=== PATIENT | female | born 1980 | race Caucasian/White ===

== ENCOUNTER 2022-07-08 17:31 | Emergency (ER) | payer SELFPAY ==
[~2022-07-08] VITALS: Ht 170.2 cm; Wt 82.7 kg
--- NOTE | 2022-07-09 16:09 | EKG ---
[facility] [address] [place], [place] [address] Signed Undetermined rhythm Rightward axis Nonspecific ST and T wave abnormality Prolonged QT Abnormal ECG No previous ECGs available Confirmed by LUCA PFEIFFER MD ([id number]) on 07/09/2022 4:09:06 PM Electronically Signed By: LUCA PFEIFFER MD 07/09/22 1609 PATIENT NAME: TRA SANTANA Electrocardiogram DATE OF : 80 PHYSICIAN: LUCA PFEIFFER MD REPORT #: [id number] REPORT IS CONFIDENTIAL AND NOT TO BE RELEASED WITHOUT AUTHORIZATION
== END 2022-07-08 20:22 | disposition short-term general hospital (02) ==
LOC: ED 17:31
DX: I63.9 Cerebral infarction, unspecified (principal); Z88.8 Allergy status to other drugs, medicaments and biological substances; Z20.822 Contact with and (suspected) exposure to COVID-19
CPT/HCPCS: 36415; 70450; 70496; 70498; 71045; 80053; 85025; 85610; 85730; 93005; 93010; 99284-25; C9803; J2405; J3101; Q9967; U0003

== ENCOUNTER 2023-09-13 20:51 | Emergency (ER) | payer OTHER ==
[~2023-09-13] VITALS: Ht 170.2 cm; Wt 98.9 kg
--- OUTSIDE RECORDS SUMMARY | ~2023-09-13 | XMS | Continuity of Care Document ---
Demographics + + + | Address | [address] | | | [place] [address] | + + + | Preferred Language | Unknown | + + + | Marital Status | | + + + | Muslim Affiliation | Unknown | + + + | Race | White | + + + | Ethnic Group | Not or | + + + Author + + + | Author | [facility] | + + + | Organization | [facility] | + + + | Address | [address] | | | [place] [address] | + + + | Phone | | + + + Care Team Providers + + + + | Care Bleach Analyst Name | Role | Phone | + [...]
[~2023-09-13 20:51] MED LIST: ELIQUIS5 MG PO
--- OUTSIDE RECORDS SUMMARY | 2023-09-13 20:58 | XMS ---
PreManage Notification: TRA SANTANA Security Landscape Management Technician Events No recent Security Events currently on file CRITERIA MET - [facility] - 2 Visits in 30 Days CARE PROVIDERS -, Pennie Dahl Dentist: Welder/Installer Current Dental Clinic PHONE: [phone] DESI PLAZA Nurse Practitioner: Family Current PHONE: Unknown Danette has no Care Guidelines for this patient. Paulina VISIT COUNT (12 MO.) 2 [place] [address] [place] TOTAL 3 NOTE: Visits indicate total known visits. ED/UCC VISIT TRACKING (12 MO.) 09/13/2023 20:52 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 - Headache, unspecified - Vomiting, unspecified - STROKE INPATIENT VISIT TRACKING (12 MO.) 09/23/2022 21:37 [facility] [place] TYPE: Intensive Care DIAGNOSES: - Acute respiratory failure with hypoxia - Bradycardia, unspecified - 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
[2023-09-13 22:11] LABS: BASOPHILS 0.9 % (0-2); EOSINOPHILS 5.3 % (0-6); HEMATOCRIT 38.9 % (35.0-50.0); HEMOGLOBIN 13.3 g/dL (12.0-18.0); MCH 30.9 (27-36); MCHC 34.3 g/dl (30-36); MCV 90.1 fl (81-99); MONOCYTES 7.5 % (0-12); NEUTROPHILS 56.3 % (39-80); PLATELET COUNT 248 K/uL (140-440); RBC 4.32 M/ul (4.3-5.7); RDW 13.9 (10.5-15.0)
[2023-09-13 22:20] LABS: ALBUMIN 3.9 g/dL (3.4-5.0); ANION GAP 11.6 (7-21); BILIRUBIN, TOTAL 0.7 ng/dL (0.2-1.0); BUN/CREATININE RATIO 17.8 (6.0-28.6); CREATININE, SERUM 0.73 mg/dL (0.55-1.02); POTASSIUM 3.6 mmol/L (3.5-5.1); PROTEIN, TOTAL 7.8 g/dL (6.4-8.2)
[2023-09-13 22:43] LABS: INR 1.07 (0.80-1.30); PARTIAL THROMBOPLASTIN TIME 27.5 Sec (22.9-41.3); PROTIME 13.5 Sec (11.2-14.2)
[2023-09-13 23:09] VITALS: BP 143/83
== END 2023-09-13 23:09 | disposition home or self-care (01) ==
LOC: ED 20:51
PROVIDERS: Internal Medicine
DX: R04.2 Hemoptysis (principal); J45.909 Unspecified asthma, uncomplicated; Z79.01 Long term (current) use of anticoagulants; Z88.8 Allergy status to other drugs, medicaments and biological substances
CPT/HCPCS: 36415; 71046; 80053; 85025; 85379; 85610; 85730; 99283-25

== ENCOUNTER 2023-10-10 13:01 | Inpatient (IN) | payer OTHER ==
[~2023-10-10] VITALS: Ht 170.2 cm; Wt 99.1 kg
--- OUTSIDE RECORDS SUMMARY | ~2023-10-10 | XMS | Continuity of Care Document ---
Demographics + + + | Address | [address] | | | [place] [address] | + + + | Preferred Language | Unknown | + + + | Marital Status | | + + + | Scientologist Affiliation | Unknown | + + + | Race | White | + + + | Ethnic Group | Not or | + + + Author + + + | Author | [facility] | + + + | Organization | [facility] | + + + | Address | [address] | | | [place] [address] | + + + | Phone | | + + + Care Team Providers + + + + | Care Door To Door Salesperson Name | Role | Phone | + + + + Unavailable | Unavailable | + + + + Allergies No information. Encounters No information. Functional Status No information. Immunizations No information. Medications No information. Problems No information. Procedures No information. Results/Labs +--------+--------+ +---------+--------+---------+ | test | date | facility | value | unit | notes | +--------+--------+ +---------+--------+---------+ + + | Result panel 1 | + + + + + + + + + | No Results | (no date) | [facility] | No Results | (missing) | (missing) | | | | [facility] | | | | | | | [facility] | | | | + + + + + + + Social History + + + + | date | description | facility | + + + + | 2023-08-20 00:00 | Unknown if ever smoked | [facility] | | | | | + + + + Vital Signs + + + +---------+ | date | measurement | value | units | + + + +---------+ | 2023-08-16 00:00 | BMI | 33.7 | 1 | + + + +---------+ | 2023-08-16 00:00 | BP_diastolic | 91 | mmHg | + + + +---------+ | 2023-08-16 00:00 | BP_systolic | 186 | mmHg | + + + +---------+ | 2023-08-16 00:00 | BSA | 2.1 | 1 | + + + +---------+ | 2023-08-16 00:00 | heart_rate | 55 | /min | + + + +---------+ | 2023-08-16 00:00 | height_metric | 170.18 | cm | + + + +---------+ | 2023-08-16 00:00 | height_standard | 67 | in | + + + +---------+ | 2023-08-16 00:00 | temperature_metric | 36.39 | C | | | | | | + + + +---------+ | 2023-08-16 00:00 | | 97.5 | F | | | temperature_standar | | | | | d | | | + + + +---------+ | 2023-08-16 00:00 | weight_metric | 97.52 | kg | + + + +---------+ | 2023-08-16 00:00 | weight_standard | 215 | lb | + + + +---------+"
--- OUTSIDE RECORDS SUMMARY | ~2023-10-10 | XMS | Continuity of Care Document ---
Demographics + + + | Address | [address] | | | [place] [address] | + + + | Preferred Language | Unknown | + + + | Marital Status | | + + + | Restoration Affiliation | Unknown | + + + | Race | White | + + + | Ethnic Group | Not or | + + + Author + + + | Author | [facility] | + + + | Organization | [facility] | + + + | Address | [address] | | | [place] [address] | + + + | Phone | | + + + Care Team Providers + + + + | Care Bilingual Teacher Assistant Name | Role | Phone | + [...]
--- OUTSIDE RECORDS SUMMARY | 2023-10-10 13:09 | XMS ---
PreManage Notification: TRA SANTANA Security Electronic Equipment Repairmen Events No recent Security Events currently on file CRITERIA MET - [facility] - 2 Visits in 30 Days CARE PROVIDERS -, Pennie Dahl Dentist: Formstone Fitter Current Dental Clinic PHONE: [phone] HAFSA BALTAZAR Family Medicine Current PHONE: Unknown RM IBARRA Family Medicine Current PHONE: [phone] DESI PLAZA Nurse Practitioner: Family Current PHONE: Unknown Danette has no Care Guidelines for this patient. Paulina VISIT COUNT (12 MO.) 3 [facility] TOTAL 3 NOTE: Visits indicate total known visits. ED/UCC VISIT TRACKING (12 MO.) 10/10/2023 13:02 [facility] [place] TYPE: Emergency COMPLAINT: - SKIN PROBLEM 09/13/2023 20:52 [facility] [place] TYPE: Emergency COMPLAINT: - COUGHING UP BLOOD DIAGNOSES: - Allergy status to other drugs, medicaments and biological substances - Hemoptysis - skilled nursing (current) use of anticoagulants - Unspecified asthma, uncomplicated 08/24/2023 15:34 [facility] [place] TYPE: Emergency COMPLAINT: - MEDICAL CLEARANCE DIAGNOSES: - Adjustment disorder, unspecified - Allergy status to other drugs, medicaments and biological substances - skilled nursing (current) use of anticoagulants - Major depressive disorder, single episode, unspecified - Suicidal ideations INPATIENT VISIT TRACKING (12 MO.) No inpatient visits to display in this time frame [id number]
[2023-10-10 16:44] LABS: BASOPHILS 0.6 % (0-2); EOSINOPHILS 0.6 % (0-6); HEMATOCRIT 38.5 % (35.0-50.0); HEMOGLOBIN 12.9 g/dL (12.0-18.0); LYMPHOCYTES 16.9 % (24-44); MCH 29.8 (27-36); MCHC 33.6 g/dl (30-36); MCV 88.8 fl (81-99); MONOCYTES 12.3 % (0-12); NEUTROPHILS 69.6 % (39-80); PLATELET COUNT 190 K/uL (140-440); RBC 4.33 M/ul (4.3-5.7); RDW 13.4 (10.5-15.0)
[2023-10-10 16:58] LABS: ALBUMIN 3.7 g/dL (3.4-5.0); ALBUMIN/GLOBULIN RATIO 0.82 (1.1-2.4); ANION GAP 15.5 (7-21); BILIRUBIN, TOTAL 0.8 ng/dL (0.2-1.0); BUN/CREATININE RATIO 12.16 (6.0-28.6); CALCIUM 8.8 mg/dL (8.5-10.1); CREATININE, SERUM 0.74 mg/dL (0.55-1.02); POTASSIUM 3.5 mmol/L (3.5-5.1); PROTEIN, TOTAL 8.2 g/dL (6.4-8.2)
[2023-10-10 21:25] VITALS: BP 170/87
--- NOTE | 2023-10-10 21:30 | NUR ---
REPORT RECIEVED FROM ED RN. pt ABLE TO TRANSFER INDEPENDENTLY FROM STRETCHER TO MED/SURG BED. pt FOREHEAD HAS HONEY CRUSTED SCABS. pt RIGHT EYE SWOLLEN SHUT AND EYELIDS RED IN COLOR. pt STATES THERE IS NO CHANGE IN HER VISION. ASSESSMENT AND VITAL SIGNS DONE. ADMISSION AND HX DONE. pt C/O 8/10 PAIN. PRN PAIN MEDICATION ADMNISTERED, SEE MAR. IVF INFUSING, SEE NOV. IV ASSESSED, WNL. pt REQUSTED HOME MEDS. PHONE CALL TO MD WOMACK ABOUT HOME MEDICATION ELIQUIS. NEW TELEPHONE ORDER VERIFIED WITH READ BACK METHOD FOR pt HOME DOSE OF ELIQUIS. BED WEIGHT TAKEN. pt DENIES ANY OTHER NEEDS AT THIS TIME. CALL LIGHT WITHIN REACH.
--- NOTE | 2023-10-10 22:51 | NUR ---
CALLED DR WOMAKC TO CLARIFY DAPTO IV ORDER, pt CAME TO [place] FLOOR AND NEVER RECEIVED THE X1 DOSE OF 500MG IV DAPTO, pt ALSO HAS DAILY 600MG IV DAPTO ORDERED BY HOSPITALIST, TELEPHONE ORDER READ BACK FROM DR WOMACK TO NOT GIVE X1 500MG IV DOSE AND TO JUST START pt ON HOSPITALIST ORDER OF THE DAILY 600MG IV. ALSO CONFIRMED WITH LANI IN TELEPHARMACY, OKAY FOR pt TO RECIEVE THE FIRST DOSE NOW AND TO CONTINUE TO GIVE DIRECTED DAILY TOMORROW MORNING. PRIMARY RN COLEMAN UPDATED. VALENTINO CHICASSTRATEGY MANAGER ALSO UPDATED AND MADE AWARE, TO MIX MEDICATION ONCE AVAILABLE.
--- NOTE | 2023-10-10 23:00 | NUR ---
pt C/O 04/08. PHONE CALL TO MD WOMACK FOR PRN PAIN MEDICATIONS. NEW TELEPHONE ORDER FOR 5 MG OXYCODONE PO PRN FOR MODERATE TO SEVERE PAIN. TELE PHARMACY HAD PUT ORDER INTO NOV. ORDER VERIFIED WITH REPEAT BACK METHOD. PRN PAIN MEDICATION ADMNISTERED, SEE MAR. pt DENIES ANY OTHER NEEDS RIGHT NOW. CALL LIGHT WITHIN REACH.
[2023-10-11] VITALS (8 sets, daily range): BP systolic 146–165; BP diastolic 73–92
--- NOTE | 2023-10-11 01:32 | NUR ---
pt CALLED C/O 07/09 PAIN STATED SHE WAS SITTING ON THE EDGE OF THE BED CRYING. CALL PLACED TO MD WOMACK FOR PRN PAIN MEDICATION. NEW TELEPHONE ORDER PLACED FOR 2 MG MORPHINE IV PRN FOR SEVERE PAIN. ORDER VERIFIED WITH REPEAT BACK METHOD. ORDER PLACED IN NOV. PRN PAIN MEDICATION ADMINISTERED, SEE NOV. ASSESSMENT AND VITAL SIGNS DONE. NEW HAT PLACED IN TOILET. HOT PACK PROVIDED FOR pt. pt DENIES ANY OTHER NEEDS AT THIS TIME. CALL LIGHT WITHIN REACH. IV ABX INFUSING, SEE NOV.
--- NOTE | 2023-10-11 03:45 | NUR ---
pt C/O 05/09 PAIN. PRN PAIN MEDICATION ADMINISTERED, SEE MAR. pt STATES SHE IS FEELING OK IF SHE JUST DOESN'T MOVE. THIS RN EDUCATED pt ON PLAN FOR STAY ON TOP HER PAIN. pt DENIES ANY OTHER NEED AT THIS TIME. CALL LIGHT WITHIN REACH.
[2023-10-11 05:50] LABS: MCV 87.6 fl (81-99); RDW 13.7 (10.5-15.0)
[2023-10-11 05:55] LABS: HEMATOCRIT 32.1 % (35.0-50.0); HEMOGLOBIN 11.2 g/dL (12.0-18.0); MCH 30.5 (27-36); MCHC 34.8 g/dl (30-36); PLATELET COUNT 163 K/uL (140-440); RBC 3.66 M/ul (4.3-5.7)
[2023-10-11 06:01] LABS: ANION GAP 14.7 (7-21); CALCIUM 8.2 mg/dL (8.5-10.1); CREATININE, SERUM 0.6 mg/dL (0.55-1.02); POTASSIUM 3.7 mmol/L (3.5-5.1)
[2023-10-11 06:11] LABS: BANDS, MANUAL DIFF 5; LYMPHOCYTES, MANUAL DIFF 32; MONOCYTES, MANUAL DIFF 8; NEUTROPHILS, MANUAL DIFF 55
--- NOTE | 2023-10-11 06:30 | NUR ---
pt C/0 06/09 PAIN. PRN PAIN MEDICATION ADMINISTERED. VITAL SIGNS AND I&O'S DONE. IVF INFUSING. pt DENIES ANY OTHER NEEDS AT THIS TIME. CALL LIGHT WITHIN REACH.
--- NOTE | 2023-10-11 07:58 | NUR ---
UR NOTE MCG CELLULITIS: OBSERVATION CARE (ISC) 10/10/23 MET OBSERVATION CARE ADMISSION SONDRA
[2023-10-11] MEDS ORDERED: DULOXETINE HCL20 MG PO (10:10)
--- NOTE | 2023-10-11 10:15 | NUR ---
BETTINA from Dr. Wilkins to change dose of oxycodone from 5mg to 10mg every six hours as needed for pain, Morphine to be discontinued and start dilaudid 1mg IV every four hours for pain as needed.
--- NOTE | 2023-10-11 10:18 | NUR ---
ADMIN DILAUDID 1MG IV FOR REPORTS OF 10/10 FACE PAIN.
--- NOTE | 2023-10-11 10:18 | NUR ---
Admin dilaudid 1mg iv for reports of 10/10 face/rasch area pain.
--- NOTE | 2023-10-11 12:16 | NUR ---
Admin oxycodone 10mg po for reports of 5/10 facial pain.
--- NOTE | 2023-10-11 13:55 | NUR ---
ATTEMPTED TO COMPLETE ASSESSMENT, PATIENT SLEEPING. WILL RETURN AT A LATER TIME.
--- NOTE | 2023-10-11 15:09 | NUR ---
ADMIN DILAUDID 1MG IV FOR REPORTS OF 8/10 FACIAL PAIN. RIGHT EYE REMAINS CLOSED AND SWOLLEN. TISSUE SURROUNDING LEFT EYE HAS SCANT SWELLING NOTED, PT ABLE TO OPEN/CLOSE LEFT EYE. PATIENT DENIES FURTHER NEEDS AT THIS TIME.
--- NOTE | 2023-10-11 16:27 | NUR ---
MED REC COMPLETE
--- NOTE | 2023-10-11 16:43 | NUR ---
Hourly rounding-Patient awake in bed, alert and oriented x4. Patient reports her pain is tolerable at this time. IV site remains patent, fluids infusing per provider order. Patient denies needs, personal supplies and call light wihtin reach.
--- NOTE | 2023-10-11 17:44 | NUR ---
ADMIN ZOFRAN 4MG IV FOR N/V. APPROX 400ML LIGHT BROWN COLORED GASTRIC EMESIS NOTED.
--- NOTE | 2023-10-11 19:15 | NUR ---
Patient resting in bed with HOB up. appears comfortable, Report provided by cruzito RN, call light within reach. patient watching TV
--- NOTE | 2023-10-11 20:20 | NUR ---
Patient feels her pain is better controled, Vs stable except temp 100.7 and patient medicated with tylenol. right eye swollen shut but patient states it is opening better and she can see out of it. area around eye going up the forehead to the hairline scabbed, flaky with areas of brown discoloratiin, no noted drainage, Maintaining contact precautions, Patient is up ad bessy to the BR and voiding without difficulty. Medicated with oxy per patient request for facial and neck pain. Is now lying on her side with lights out. call light within reach.
--- NOTE | 2023-10-11 22:40 | NUR ---
Patient up to the BR with no difficulty, No change in assessment, patient without complaints or needs at this time.
[2023-10-12] VITALS (8 sets, daily range): BP systolic 135–155; BP diastolic 65–95
--- NOTE | 2023-10-12 00:25 | NUR ---
Rounding on patient, appears a sleep.appears comfortable, RR even and unlabored, no noted change in right eye/forehead. call light within reachy
--- NOTE | 2023-10-12 02:01 | NUR ---
Patient sleeping between care, VSS, ABX infusiing, patient up to BR independently, remains comfortable, lights are out and call light within reach.
--- NOTE | 2023-10-12 03:55 | NUR ---
Patient called to request pain medication. Medicated with oxy and tylenol per patient request. Further assessment without change, Patient up ad bessy to BR.
[2023-10-12 05:48] LABS: ANION GAP 12.2 (7-21); BUN/CREATININE RATIO 5.55 (6.0-28.6); CALCIUM 8.2 mg/dL (8.5-10.1); CREATININE, SERUM 0.72 mg/dL (0.55-1.02); POTASSIUM 3.2 mmol/L (3.5-5.1)
--- NOTE | 2023-10-12 06:15 | NUR ---
Patient awake and sitting on edge of bed. Has had good pain control tonight with ocy + tylenol x2 and patient just requested and given diluadid 1 mg. VSS except evening temp @ 100.6 then down to 98.7 and this am check is up to 99.4. Patient feels like she can open the right eye more this am, but states it is still blurry. She has had no episodes fo crying on this shift.
--- NOTE | 2023-10-12 07:05 | NUR ---
PT STATES NO NEEDS AT THIS TIME, ALLOWED TO REST.
--- NOTE | 2023-10-12 07:17 | NUR ---
RECEIVED REPORT FROM ABHINAV GARDINER. ASSUMING CARE OF PT.
--- NOTE | 2023-10-12 09:00 | NUR ---
PT STATES PAIN HAS BEEN "MANAGEABLE" AND THAT SHE HAS BEEN "USING HOLISTIC TECHNIQUES TO KEEP PAIN AT BAY", STATES SHE WOULD LIKE PRN PAIN MEDICATION WHEN AVAILABLE. PT CONTINUES TO AMBULATE INDEPENDENTLY AROUND ROOM. PT TOLERATING REGULAR DIET WELL, A+O X3, LUNG SOUNDS CLEAR, HEART TONES REGULAR. PT VOIDING QUANTITY SUFFICIENT. SHINGLES AND CELLULITUS ON FOREHEAD/OVER R EYE REMAIN, HONEY CRUSTED SCABS PRESENT. PT REMAINS ON AIRBORN PRECAUTIONS AT THIS TIME. PT STATES SHE BELIEVES SWELLING FROM SHINGLES AND CELLULITUS HAS DECREASED SINCE YESTERDAY, NOW ABLE TO OPEN R EYE APPROXIMATELY HALF WAY. 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
--- NOTE | 2023-10-12 13:39 | NUR ---
PT REQUESTS WATER REFILL, GIVEN. STATES NO FURTHER NEEDS AT THIS TIME, CALL LIGHT WITHIN REACH.
--- NOTE | 2023-10-12 13:40 | NUR ---
THIS RN BRINGS LUNCH TRAY TO PT ROOM. PT STATES NO NEEDS AT THIS TIME. STATES PAIN IS "GETTING BETTER" AND RATES PAIN 6/10 AT THIS TIME. DENIES NEED FOR PRN PAIN MEDICATION AT THIS TIME. CALL LIGHT WITHIN REACH.
--- NOTE | 2023-10-12 13:50 | NUR ---
PT STATES PAIN IS "DOING OKAY" AT THIS TIME, DENIES NEED FOR PAIN MEDICATIONS. SITTING UP IN CHAIR TO EAT LUNCH. DENIES FURTHER NEEDS AT THIS TIME, CALL LIGHT WITHIN REACH.
--- NOTE | 2023-10-12 14:19 | NUR ---
PT MOVES FROM CHAIR TO BED INDEPENDENTLY. PT AND CHILDREN AT THE BEDSIDE. PT STATES PAIN IS "PRETTY GOOD" AT THIS TIME. STATES NO FURTHER NEEDS AT THIS TIME, CALL LIGHT WITHIN REACH.
--- NOTE | 2023-10-12 16:06 | NUR ---
PT SITTING ON BED VISITING WITH FAMILY. ABX COMPLETE WHILE THIS RN IN ROOM. PT REQUESTS MORE TOILET PAPER AND TO SHOWER. IV SALINE LOCKED, SHOWER SUPPLIES PROVIDED IV WRAPPED WITH ZIPLOC BAG. PT REQUESTS PRN PAIN MEDICATION TO "TRY AND GET AHEAD OF THE PAIN", STATES IV PRN PAIN MEDICATION RECENTLY GIVEN "HELPED A LOT" BUT DOES NOT WANT TO LET "MYSELF GET THAT PAINFUL AGAIN". PT STATES NO FURTHER NEEDS AT THIS TIME, CALL LIGHT WITHIN REACH.
--- NOTE | 2023-10-12 17:14 | NUR ---
PT HAS JUST SHOWERED, FAMILY LEAVES THE BEDSIDE AT THIS TIME. PT STATES PAIN IS 5/10 AND STATES "PROBABLY SLIGHTLY LOWER THAN THAT, BUT NOT SURE". PT STATES NO NEEDS AT THIS TIME, CALL LIGHT WITHIN REACH.
--- NOTE | 2023-10-12 19:36 | NUR ---
REPORT RECEIVED FROM DAY SHIFT RN. PT LYING IN BED ALERT AND ORIENTED. DENIES NEEDS. WHITE BOARD UPDATED. CALL LIGHT IN REACH.
--- NOTE | 2023-10-12 19:40 | NUR ---
PT RESTING IN BED. NO NEEDS, CALL LIGHT WITHIN REACH
--- NOTE | 2023-10-12 20:53 | NUR ---
EVENING ASSESSMENT COMPLETE. SCHEDULED MEDS ADMIN PER EMAR. IV ABX INFUSING PER ORDER. PT REPORTS RIGHT SIDE FOREHEAD PAIN TOLERABLE AT THIS TIME. REDNESS AND CRUSTING NOTED. PT ABLE TO OPEN EYE. REPORTS SLIGHT BLURRINESS DUE TO DRAINAGE. FEW RED SPOTS NOTED DOWN RIGHT SIDE OF NECK AND ON CHEST, NO BLISTERS NOTED. PT REPORTS RASH CAME AFTER "DOING LYMPHATIC MASSAGE." VS AND I&O OBTAINED. PT DENIES QUESTIONS OR CONCERNS. CALL LIGHT IN REACH.
--- NOTE | 2023-10-12 22:19 | NUR ---
IN FOR CASE WORKER. PT REPORTS EPISODE OF CHILLS AFTER GETTING BACK TO BED AFTER BATHROOM. PT AFEBRILE. REPORTS SX RESOLVED. C/O RIGHT SIDE FACE PAIN 05/09. PRN FOR PAIN ADMIN PER EMAR. NO FURTHER NEEDS. CALL LIGHT IN REACH.
--- NOTE | 2023-10-12 23:35 | NUR ---
IV PUMP ALARMING. ISSUE RESOLVED. PT REPORTS FACIAL PAIN 04/08. PRN FOR PAIN ADMIN PER EMAR. NO FURTHER NEEDS.
[2023-10-13] VITALS (7 sets, daily range): BP systolic 140–182; BP diastolic 74–92
--- NOTE | 2023-10-13 02:01 | NUR ---
PT RESTING WITH EYES CLOSED. AWAKENS EASILY. IV ABX INFUSING PER ORDER. PT REPORTS PAIN TOLERABLE. NO NEEDS AT THIS TIME.
[2023-10-13 05:36] LABS: ANION GAP 11.8 (7-21); BUN/CREATININE RATIO 9.23 (6.0-28.6); CALCIUM 8.4 mg/dL (8.5-10.1); CREATININE, SERUM 0.65 mg/dL (0.55-1.02); POTASSIUM 3.8 mmol/L (3.5-5.1)
--- NOTE | 2023-10-13 06:27 | NUR ---
PT RESTING WITH EYES CLOSED. AWAKENS TO VOICE. REPORTS FACIAL PAIN 03/09. PRN FOR PAIN ADMIN PER EMAR. SCHEDULED MEDS ADMIN PER ORDER. VS AND I&O OBTAINED, WNL. NO FURTHER NEEDS. CALL LIGHT IN REACH.
--- NOTE | 2023-10-13 07:33 | NUR ---
RECEIVED REPORT FROM ABHINAV ZAVALETA. ASSUMING CARE OF PT. PT AWAKE AND AMBULATING IN ROOM AND TO RESTROOM. PT STATES PAIN IS "STILL KIND OF HIGH" AFTER RECENT PAIN MEDICATIONS, REQUESTS NEXT PRN PAIN MEDICATION WHEN AVAILABLE. CALL LIGHT WITHIN REACH.
--- NOTE | 2023-10-13 08:13 | NUR ---
PT AWAKE AND ALERT IN BED. A+O X3. HEART TONES CONTINUE TO BE IRREGULAR PER BASELINE. LUNG SOUNDS CLEAR. BOWEL TONES ACTIVE. PT TAKES SENNA THIS MORNING, STATES SHE HAS NOT HAD BM SINCE 10/10/23, IS PASSING GAS, STATES SHE STARTED EATING MORE IN THE LAST DAY. SWELLING AROUND R EYE AND R SIDE OF FOREHEAD CONTINUES TO DECREASE, HONEY CRUSTED AND SCABBING REMAIN PRESENT, 3 SMALL SPOTS ON CHEST AND NECK, PT STATES THEY SEEM MORE LIKE PIMPLES TO HER AT THIS TIME, NO SPOTS ON OTHER AREAS. PT STATES NO NEEDS AT THIS TIME, CALL LIGHT WITHIN REACH, BED RAILS UP.
--- NOTE | 2023-10-13 14:20 | NUR ---
PT UP IN CHAIR VISITING WITH . PT STATES PAIN IS "DOING OKAY" AT THIS TIME. R SIDE OF FOREHEAD AND R EYE SWELLING APPEARS TO BE DECREASING SINCE MORNING ASSESSMENT. R EYE ABLE TO BE OPENED FCI AT THIS TIME. REDNESS PRESENT ON SCLERA OF EYE. SCABBING AND HONEY CRUSTED AREA REMAIN PRESENT ON AFFECTED AREA. "3 PIMPLE LIKE SPOTS" ON CHEST HAVE DECREASED IN REDNESS, PT STATES SHE BELIEVES THEY ARE ACNE RELATED. PT STATES NO FURTHER NEEDS AT THIS TIME, CALL LIGHT WITHIN REACH.
--- NOTE | 2023-10-13 16:45 | NUR ---
PT SITTING UP IN CHAIR VISITING WITH . PT STATES PAIN IS "PRETTY GOOD" AT THIS TIME, DECLINES NEED FOR PRN BREAKTHROUGH PAIN MEDCIATION. IV DRESSING HAS DRIED BLOOD IN WINDOW, DRESSING CHANGED, CHLORAHEXIDINE USED TO CLEAN INSERTION SITE. IV SITE FLUSHED, SALINE LOCKED. PT STATES NO NEEDS AT THIS TIME, CALL LIGHT WITHIN REACH.
--- NOTE | 2023-10-13 19:40 | NUR ---
REPORT RECEIVED FROM DAY SHIFT RN. PT SITTING IN RECLINER ALERT AND ORIENTED. DENIES NEEDS. WHITE BOARD UPDATED. CALL LIGHT IN REACH.
--- NOTE | 2023-10-13 20:15 | NUR ---
EVENING ASSESSMENT COMPLETE. IV ABX INFUSING PER ORDER. PT REPORTS FACIAL PAIN TOLERABLE AT THIS TIME. REDNESS AND SCABBED AREA NOTED ON RIGHT SIDE OF FOREHEAD AND PERIORBITAL AREA. PT ABLE TO OPEN EYE. REDNESS OF EYE NOTED. PT REPORTS DRAINAGE FROM EYE. NO VISION CHANGES REPORTED. VS AND I&O OBTAINED. PT DENIES QUESTIONS OR CONCERNS. CALL LIGHT IN REACH.
--- NOTE | 2023-10-13 22:33 | NUR ---
PT AWAKE IN BED. SCHEDULED MEDS ADMIN PER EMAR. PT DENIES NEEDS AT THIS TIME.
--- NOTE | 2023-10-13 23:30 | NUR ---
IV INFUSION COMPLETE. IV SL. PT REPORTS RIGHT SIDE FACIAL PAIN 06/09. PRN FOR PAIN ADMIN PER EMAR. FRESH WATER PROVIDED. NO FURTHER NEEDS.
--- NOTE | 2023-10-14 01:48 | NUR ---
PT RESTING WITH EYES CLOSED. AWAKENS EASILY. IV ABX INFUSING PER ORDER. NO NEEDS AT THIS TIME.
--- NOTE | 2023-10-14 04:08 | NUR ---
PT RESTING IN BED WITH EYES CLOSED. HOB 30 DEGREES. RESPIRATIONS EVEN. CALL LIGHT IN REACH.
[2023-10-14 05:44] LABS: BASOPHILS 0.9 % (0-2); EOSINOPHILS 4.4 % (0-6); HEMOGLOBIN 10.6 g/dL (12.0-18.0); LYMPHOCYTES 42.6 % (24-44); MCH 29.6 (27-36); MCHC 34.1 g/dl (30-36); MCV 86.7 fl (81-99); MONOCYTES 8.8 % (0-12); NEUTROPHILS 43.3 % (39-80); PLATELET COUNT 183 K/uL (140-440); RBC 3.58 M/ul (4.3-5.7); RDW 13.4 (10.5-15.0)
[2023-10-14 05:55] LABS: BUN/CREATININE RATIO 15.71 (6.0-28.6); CALCIUM 8.5 mg/dL (8.5-10.1); CREATININE, SERUM 0.7 mg/dL (0.55-1.02)
[2023-10-14 05:56] VITALS: BP 148/70
--- NOTE | 2023-10-14 07:02 | NUR ---
VS AND I&O COMPLETE. PRN FOR 8/10 FACIAL PAIN ADMIN PER EMAR. NEW IV PLACED IN LEFT AC WITH FOUR ATTEMPTS. PT JESSICA WELL. SCHEDULED MEDS ADMIN PER EMAR. PT DENIES FURTHER NEEDS. CALL LIGHT IN REACH.
[2023-10-14 09:11] VITALS: BP 148/80
--- NOTE | 2023-10-14 09:30 | NUR ---
ADMIN DILAUDID 1MG IV FOR REPORTS OF 7/10 FACIAL PAIN.
[2023-10-14 09:53] VITALS: BP 148/80
--- NOTE | 2023-10-14 10:45 | NUR ---
PATIENT SITTING UP IN BED WATCHING TV, NO ACUTE DISTRESS. PATIENT'S FACILA RASH APPEARS TO BE IMPROVING, SCABBING NOTED. PATIENT IS ABLE TO OPEN BOTH EYES, SHE DENIES VISUAL CHANGES. PATIENT'S IV SITE REMAINS PATENT, ABX INFUSING PER PROVIDER ORDER. PATIENT DENIES NEEDS AT THIS TIME. PERSONAL SUPPLIES AND CALL LIGHT WITHIN REACH.
--- NOTE | 2023-10-14 12:04 | NUR ---
PATIENT ALERT AND ORIENTED. DEMOGRAPHICS VERIFIED WITH PATIENT. STATES SHE LIVES IN HOME WITH STAIRS WITH MARY, SPOUSE. STATES SHE HAS NO ISSUES WITH STAIRS. NO MEDICAL EQUIPMENT AT HOME. STATES SHE STILL DRIVES BUT SPOUSE DOES WELL. DENIES ANY FINANCIAL HARDSHIP. DENIES NEEDS AT HOME. INSTRUCTED TO NOTIFY STAFF IF NEEDS [facility]ISE. ALSO STATES SHE HAS APPOINTMENT WITH DR. IBARRA IN NOVEMBER TO ESTABLISH PCP. ADMITTING NOTIFIED.
--- NOTE | 2023-10-14 13:32 | NUR ---
ADMIN OXYCODONE 10MG PO FOR REPORTS OF 10/10 FACIAL PAIN. TYLENOL OFFERED TO PATIENT IN CONJUNCTION, PT DECLINED. ENCOURAGED PATIENT TO CALL IF SHE HAS FURTHER NEEDS FOR PAIN MANAGEMENT. DISCUSSED WITH PATIENT THAT PAIN MEDICATION IS ORDERED NEEDED AND NOT SCHEDULED.
--- NOTE | 2023-10-14 13:37 | NUR ---
ROUNDS. PT EXPRESSED STRONG KITTY RESOURCES; SITUATIONALLY APPROPRIATE RESPONSES. PROVIDED SUPPORTIVE PRESENCE; PROVIDED HOSPITALITY; PROVIDED PRAYER.
--- NOTE | 2023-10-14 14:14 | NUR ---
UR NOTE MCG CELLULITIS 10/11/23 MET CLINICAL INDICATIONS FOR ADMISSION TO INPATIENT CARE GL DAY 1 10/13/22 VARIANCE GL DAY 2
[2023-10-14 15:20] VITALS: BP 152/56
[2023-10-14 18:35] VITALS: BP 142/84
--- NOTE | 2023-10-14 19:15 | NUR ---
REPORT RECEIVED FROM DAY SHIFT RN. PT LYING IN BED ALERT AND ORIENTED. FAMILY IN ROOM. NO NEEDS AT THIS TIME. CALL LIGHT IN REACH.
--- NOTE | 2023-10-14 19:51 | NUR ---
SCHEDULED MEDS ADMIN PER EMAR. PT REPORTS FACIAL PAIN 05/09. PRN FOR PAIN ADMIN PER EMAR. FAMILY REMAINS AT BEDSIDE. NO FURTHER NEEDS.
[2023-10-14 22:16] VITALS: BP 138/73
--- NOTE | 2023-10-14 22:39 | NUR ---
EVENING ASSESSMENT COMPLETE. SCHEDULED MEDS ADMIN PER EMAR. PT REPORTS PAIN IMPROVED AFTER STUDENT SUCCESS COACH. VS AND I&O OBTAINED. REDNESS/CRUSTED SHINGLES NOTED ON RIGHT SIDE FOREHEAD. EDEMA NOTED. PT ABLE TO OPEN EYE APPROX HALF WAY. EYE BLOODSHOT. PT REPORTS OCCASIONAL BLURRED VISION IN RIGHT EYE WHICH SHE BELIEVES IS RELATED TO "FATIGUE" IN THE EYE. NO DRAINAGE REPORTED. PT DENIES QUESTIONS OR CONCERNS. CALL LIGHT IN REACH.
--- NOTE | 2023-10-15 02:48 | NUR ---
PT RESTING WITH EYES CLOSED. AWAKENS EASILY. IV ABX INFUSING PER ORDER. PT REPORTS RIGHT SIDE FACIAL PAIN /. PRN FOR PAIN ADMIN PER EMAR. ASSESSMENT UNCHANGED. NO FURTHER NEEDS.
[2023-10-15 05:30] LABS: EOSINOPHILS 4.4 % (0-6); HEMOGLOBIN 11.1 g/dL (12.0-18.0); LYMPHOCYTES 34.4 % (24-44); MCH 29.7 (27-36); MCHC 34.6 g/dl (30-36); MONOCYTES 7.5 % (0-12); NEUTROPHILS 52.7 % (39-80); PLATELET COUNT 248 K/uL (140-440); RBC 3.72 M/ul (4.3-5.7)
[2023-10-15 05:44] LABS: ALBUMIN 2.8 g/dL (3.4-5.0); ALBUMIN/GLOBULIN RATIO 0.65 (1.1-2.4); ANION GAP 14.9 (7-21); BILIRUBIN, TOTAL 0.6 ng/dL (0.2-1.0); BUN/CREATININE RATIO 14.08 (6.0-28.6); CALCIUM 8.5 mg/dL (8.5-10.1); CREATININE, SERUM 0.71 mg/dL (0.55-1.02); POTASSIUM 3.9 mmol/L (3.5-5.1); PROTEIN, TOTAL 7.1 g/dL (6.4-8.2)
[2023-10-15 06:14] VITALS: BP 117/64
--- NOTE | 2023-10-15 06:36 | NUR ---
PT RESTING IN BED WITH EYES CLOSED. AWAKENS EASILY. VS AND I&O OBTAINED. MEDS ADMIN PER EMAR. PT DENIES FURTHER NEEDS. CALL LIGHT IN REACH.
--- NOTE | 2023-10-15 07:07 | NUR ---
VERBAL REPORT RECEIVED FROM ABHINAV ZAVALETA. PT RESTS IN BED WITH EYES CLOSED, RESP EVEN AND UNLABORED.
[2023-10-15 09:26] VITALS: BP 141/69
[2023-10-15 12:16] VITALS: BP 141/69
[2023-10-15 14:03] VITALS: BP 151/80
--- NOTE | 2023-10-15 14:04 | NUR ---
PT SITTING ON SIDE OF BED. PT DRESSED AND READY TO BE DISCHARGED. PT IN ROOM.
[2023-10-15] MEDS ORDERED: OXYCODONE HCL5 MG PO (14:06)
[2023-10-15] MEDS ORDERED: GABAPENTIN300 MG PO (14:07)
[2023-10-15] MEDS ORDERED: VALACYCLOVIR1000 MG PO (14:08)
[2023-10-15] MEDS ORDERED: BACTRIM DS TAB1 EACH PO (14:09)
--- NOTE | 2023-10-15 14:23 | NUR ---
PT DRESSED SELF FOR DISCHARGE. SPOUSE IN ROOM. IV REMOVED, TIP INTACT, GAUZE AND COBAN DRESSING APPLIED TO SITE. PT TOLERATED WELL.
== END 2023-10-15 14:38 | disposition home or self-care (01) | DRG 596 ==
LOC: ED 13:01 → MS 13:03
PROVIDERS: Emergency Medicine; ADMIT Internal Medicine; ATTEND Family Medicine
DX: B02.9 Zoster without complications (principal); L03.213 Periorbital cellulitis; I48.0 Paroxysmal atrial fibrillation; G43.909 Migraine, unspecified, not intractable, without status migrainosus; Z86.73 Personal history of transient ischemic attack (TIA), and cerebral infarction without residual deficits; Z79.01 Long term (current) use of anticoagulants
CPT/HCPCS: 36415; 70487; 80048; 80053; 82553; 85025; 96374; 96375; 96376; 99284-25; A9270; G0378; J0133; J0295; J0878; J1170; J2270; J2405; J7030; J7060; Q9967

== ENCOUNTER 2024-01-07 07:59 | Inpatient (IN) | payer OTHER ==
[~2024-01-07] VITALS: Ht 170.2 cm; Wt 98.0 kg
--- NOTE | ~2024-01-07 | HP ---
[facility] [address], [place] [address] Draft ADMISSION DATE: 01/07/2024 REASON FOR ADMISSION: Acute sigmoid diverticulitis. HISTORY OF PRESENT ILLNESS: This 43-year-old white woman presented to the emergency room with significant left lower abdominal pain, which began yesterday. It was sharp and constant and mostly in the left lower quadrant. The patient was having some constipation and took some laxative with no significant results. She has had no pain elsewhere and did have nausea transiently. She has had no dysuria or pneumaturia. She has had no fever or chills. A CT scan was ordered by evaluating physician Dr. Mcbride, which showed no evidence of mesenteric ischemia. Uncomplicated acute diverticulitis regarding the proximal sigmoid colon. A 5 mm nonobstructing lower pole left renal calculus. The patient has a very complex past medical history of cerebrovascular accident x2, largely recovered from with uncertain etiology. She is taking Eliquis 5 mg b.i.d. on that basis. More notably, she has recently undergone Cardiology evaluation for her "low heart rate" and was said to have sick sinus syndrome for which Holter monitoring is anticipated for two-week interval in the near future. The patient has had no chest pain, but does have exertional fatigue. She and her had recently traveled for the [facility] and even going up and down the steps to her trailer would cause a fair amount of fatigue. In the course of her evaluation in the emergency room, she was noted to have significant anemia with hematocrit of only 20.9 with normal platelets of 270. White count 11.1. Her electrolytes and liver enzymes were essentially normal. Urinalysis was normal also. In addition to her antiemetic, cerebrovascular accident history and ongoing Cardiology evaluation, she does have a prior history of ovarian cyst. She has never had colonic operation. The patient had seen me in the recent past and plans had been made for colonoscopy to be undertaken on January 19. Given her difficult prior history of cerebrovascular accident x2. Her routine Eliquis was plan to transition to bridge therapy with Lovenox. SOCIAL HISTORY: She is . She is accompanied by her at this time. REVIEW OF SYSTEMS: She denies any chest pain or shortness of breath. She has had no neurologic symptoms or signs at this point. The pain is mostly in the left lower quadrant. PATIENT NAME: TRA SANTANA HISTORY AND PHYSICAL DATE OF : 80 REPORT #: [id number] PHYSICIAN: ABIEL DIALLO MD PCP: RM IBARRA MD REPORT IS CONFIDENTIAL AND NOT TO BE RELEASED WITHOUT AUTHORIZATION [facility] [address], [place] [address] Draft PHYSICAL EXAMINATION: GENERAL: Pleasant white woman who does not look systemically toxic. Height is 5 feet 7 inches, weight 98 kg with a BMI of 33.8. HEENT: Trachea is midline. She has no cervical adenopathy. No hoarseness. Mucous membranes were reasonably moist. CHEST: Clear. HEART: Regular without murmur. Heart rate is about 50-60 currently. ABDOMEN: Nondistended. There is significant tenderness in the left lower quadrant. She has no ascites. EXTREMITIES: Show no clubbing, cyanosis, or edema. VITAL SIGNS: Temperature 98.4, pulse 66, blood pressure 131/59, O2 saturation on room air is 98%. LABORATORY STUDIES: Show white count 11.1, hematocrit 20.9, platelets 270,000. Electrolytes are normal. Liver enzymes essentially normal. Urinalysis normal. ASSESSMENT: The patient has clinical and radiographic evidence of acute sigmoid diverticulitis. Her concurrent anemia is uncertain as to etiology. She has self-described "hemorrhoids" and episodic rectal bleeding for which colonoscopy was additionally planned to affirm or refute. By now, she is not having rectal bleeding, but she does remain with hematocrit of 20.9 with an underlying level of fatigue with minor exertion. On that basis, transfusion therapy was discussed with her and I would recommend she undergo 2 unit transfusion, which may be beneficial to her. Given her self-described "sick sinus syndrome" related to sinus node dysfunction recently attributed by her social worker aide. It would be even more beneficial that a more normal hematocrit be obtained by transfusion. The risk of transfusion therapy was reviewed with the patient and her . They agreed to proceed. As regards to sigmoid diverticulitis, antibiotic regimen has been initiated through the emergency room. I will prescribe Ancef and Flagyl IV. She will be allowed a clear liquid diet, but avoidance of fiber at this point. In general, one would not plan to do colonoscopy in the setting of acute diverticulitis. One must be concerned regarding the ligament in her case related to her rectal bleeding and significant anemia and left lower abdominal pain. The incidence of concurrent diverticular disease and colon cancer is only 2%. The CT angiogram on the basis of her prior mysterious thrombotic episodes and shows no evidence of embolic or thrombotic disease of the gastrointestinal tract, but does affirm in fact the sigmoid diverticulitis as described. PATIENT NAME: TRA SANTANA HISTORY AND PHYSICAL DATE OF : 80 REPORT #: [id number] PHYSICIAN: ABIEL DIALLO MD PCP: RM IBARRA MD REPORT IS CONFIDENTIAL AND NOT TO BE RELEASED WITHOUT AUTHORIZATION [facility] [address] [place], [place] [address] Draft MD ROMY Webster/ALISON /[id number] cc: MD Rm Zambrano MD Copies: CARLITOS MCBRIDE MD, ROBERT D DMD ~ PATIENT NAME: TRA SANTANA HISTORY AND PHYSICAL DATE OF : 80 REPORT #: [id number] PHYSICIAN: ABIEL DIALLO MD PCP: RM IBRARA MD REPORT IS CONFIDENTIAL AND NOT TO BE RELEASED WITHOUT AUTHORIZATION
--- NOTE | ~2024-01-07 | DS ---
[facility] [address], [place] [address] Draft ADMISSION DATE: 01/07/2024 DISCHARGE DATE: 01/09/2024 REASON FOR ADMISSION: This 43-year-old white woman presented to the emergency room with significant left lower abdominal pain beginning the day prior to admission. It was sharp and constant, mostly in the left lower quadrant. She had some constipation and took laxatives without significant result. She has had pain elsewhere in the abdomen did have nausea transiently. She has had no dysuria or hematuria. A CT scan was performed under the direction of Dr. Mcbride, the emergency room physician showing no evidence of mesenteric ischemia. Uncomplicated acute diverticulitis of the proximal sigmoid colon was noted. A 5 mm nonobstructing lower pole left renal calculus was also seen. The patient has a very complex past medical history of hyperthrombotic events including cerebrovascular accident x2 largely covered. The underlying etiology has been uncertain. She does take Eliquis 5 mg b.i.d. on that basis. She has undergone cardiology evaluation for a "low heart rate" and was said to have sick sinus syndrome for which Holter monitoring was anticipated for two-week interval in the near future. The patient has had no associated chest pain, but does have exertional fatigue. She and her recently traveled for the recent solar eclipse, which caused her to have a fair amount of fatigue with minimal exertion. She also was noted to have significant anemia with hematocrit of only 20.9 with normal platelets of 275,000 and white count of 11.1. Electrolytes and liver enzymes were normal as was urinalysis. She was admitted for further evaluation and care for presumed acute sigmoid diverticulitis. PERTINENT PHYSICAL EXAMINATION: GENERAL: Showed a pleasant white woman who did not look systemically toxic. BMI is 33.8. HEENT: Trachea is midline. CHEST: Clear. HEART: Regular without murmur. ABDOMEN: Nondistended. There was significant tenderness in the left lower quadrant. EXTREMITIES: Show no clubbing, cyanosis, or edema. VITAL SIGNS: Temperature is 98.4, pulse 66, blood pressure 131/59, O2 saturation on room air 98%. HOSPITAL COURSE: The patient was given bedrest with IV fluids and ambulation encouraged. Given her very low hematocrit, a 2 unit of blood transfusion was recommended and accepted by the patient. This was performed, though she did have subjective sense of shortness of PATIENT NAME: TRA SANTANA DISCHARGE SUMMARY DATE OF : [birth year] REPORT #: [id number] PHYSICIAN: ABIEL DIALLO MD PCP: RM IBARRA MD REPORT IS CONFIDENTIAL AND NOT TO BE RELEASED WITHOUT AUTHORIZATION [facility] [address], [place] [address] Draft breath late in the night. At approximately 3:00 a.m. the day of her discharge, she was given Lasix intravenously, which allowed for diuresis of 1500 mL and resolution of her fluid tissue. Her clinical examination showed marked improvement of her left lower quadrant tenderness. The patient was unhappy and felt that her communication needs were not being met with the nighttime nursing staff. I conferred with the patient the morning of her discharge on January 08 in the presence of her and with subsequent review of the activity by her nurse at that time as well as the nursing teacher of the unit. LABORATORY STUDIES: On the morning of her evaluation did show a white count of 8.7, hematocrit of 25.7, up from 20.9, and a platelet count of 198,000. A D-dimer was noted to be elevated to 1.87 (normal up to 0.5). The patient upon presentation with this information noted that she has had elevated D-dimers many times in the past and she attributed it to possible congestion of her heart as had been intimated by her petroleum sampler and did not wish to pursue further and evaluation for clotting. The patient had lost confidence in her overall event of care though I believe that she was well treated actually and much improved by time of discharge. She has to be discharged. A plan had been put forth to provide for bowel prep on the day of her discharge with a colonoscopy as had been previously planned as an outpatient on January 19. She is unsure if she will follow through with her plan recommended colonoscopy in late December, now we are available to her should she decide to once again pursue it. She is discharged to home in an improved condition. She does agree to take antibiotics that I have recommended including Flagyl and Cipro. She will restart her Eliquis, which had been given for her hyperthrombotic state. Notably, during her hospitalization, Lovenox subcutaneously administered was provided on a b.i.d. basis, her dose dominantly that of 70 mg. I have asked her to call to our office what she decides whether or not she will proceed with colonoscopy as previously scheduled on January 19. She says she will do so. She is advised to discharge to maintain a low-fiber diet for at least two weeks and to take the prescribed medications as recommended. DISCHARGE MEDICATIONS: 1. Tylenol 500 mg two tablets p.o. q.8 hours as needed for pain #30. 2. Cipro 500 mg p.o. b.i.d. #10. 3. Flagyl 500 mg p.o. b.i.d. #10. No refill. PATIENT NAME: TRA SANTANA DISCHARGE SUMMARY DATE OF : [birth year] REPORT #: [id number] PHYSICIAN: ABIEL DIALLO MD PCP: RM IBARRA MD REPORT IS CONFIDENTIAL AND NOT TO BE RELEASED WITHOUT AUTHORIZATION [facility] [address] [place] [id number] Draft 4. Restart of apixaban (Eliquis) 5 mg p.o. b.i.d. 5. Omeprazole 40 mg p.o. daily. 6. Magnesium glycinate 100 mg p.o. daily. 7. Vitamin B complex one p.o. daily. 8. Vitamin C 500 mg p.o. 2-3 times daily. 9. Potassium gluconate mg (99 mg tablet) one tablet p.o. 2 to 3 times a day. DISCHARGE DIAGNOSES: 1. Acute sigmoid diverticulitis as noted on clinical exam and CT scan. 2. Concurrent anemia, etiology unknown, hematocrit 28.9 at admission and subsequent to transfusion 25.7. FOLLOWUP PLAN: She will call changed her mind regarding the colonoscopy planned as an outpatient for January 19. MD ROMY Webster/LAUREENL /[id number] cc: Dr. Manas Ibarra Copies: ~ PATIENT NAME: TRA SANTANA DISCHARGE SUMMARY DATE OF : 80 REPORT #: [id number] PHYSICIAN: ABIEL DIALLO MD PCP: RM IBARRA MD REPORT IS CONFIDENTIAL AND NOT TO BE RELEASED WITHOUT AUTHORIZATION
[~2024-01-07 07:59] MED LIST changes: +BACTRIM DS TAB1 EACH PO; +DULOXETINE HCL20 MG PO; +GABAPENTIN300 MG PO; +OXYCODONE HCL5 MG PO; +VALACYCLOVIR1000 MG PO
--- OUTSIDE RECORDS SUMMARY | 2024-01-07 08:03 | XMS ---
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 EDamaris VISIT COUNT (12 MO.) [address] [facility] [place] TOTAL 4 NOTE: Visits indicate total known visits. ED/UCC VISIT TRACKING (12 MO.) 01/07/2024 07:59 [facility] [place] TYPE: Emergency COMPLAINT: - LOWER L ABD PAIN 10/10/2023 13:02 [facility] [place] TYPE: Emergency COMPLAINT: - SKIN PROBLEM 09/13/2023 20:52 [facility]NY Reevesony [place] TYPE: Emergency COMPLAINT: - COUGHING UP BLOOD DIAGNOSES: - Allergy status to other drugs, medicaments and biological substances - Hemoptysis - halfway (current) use of anticoagulants - Unspecified asthma, uncomplicated 08/24/2023 15:34 HENNY Reevesjody JimenezDeann Taho [place] TYPE: Emergency COMPLAINT: - MEDICAL CLEARANCE DIAGNOSES: - Adjustment disorder, unspecified - Allergy status to other drugs, medicaments and biological substances - roasterman (current) use of anticoagulants - Major depressive disorder, single episode, unspecified - Suicidal ideations INPATIENT VISIT TRACKING (12 MO.) 10/11/2023 09:54 HENNY Reevesjody JimenezDeann [place] TYPE: Medical Surgical COMPLAINT: - PERIORORBITAL CELLULITIS DIAGNOSES: - halfway (current) use of anticoagulants - Migraine, unspecified, not intractable, without status migrainosus - Paroxysmal atrial fibrillation - Periorbital cellulitis - Personal history of transient ischemic attack (TIA), and cerebral infarction without residual deficits - Zoster without complications [email or web address]
[2024-01-07] MEDS ORDERED: ondansetron HCL 4 MG/2 ML VIAL IV ONE ×2 (08:30→08:45)
[2024-01-07 08:32] LABS: BILIRUBIN, URINE NEGATIVE (negative); BLOOD/HGB, URINE NEGATIVE (Negative); KETONE, URINE NEGATIVE (Negative); LEUK ESTERASE, URINE NEGATIVE (negative); NITRITE, URINE NEGATIVE (negative)
[2024-01-07 08:35] LABS: BASOPHILS 0.5 % (0-2); EOSINOPHILS 2.4 % (0-6); HEMATOCRIT 20.9 % (35.0-50.0); HEMOGLOBIN 6.9 g/dL (12.0-18.0); LYMPHOCYTES 17.9 % (24-44); MCH 25.4 (27-36); MCHC 32.9 g/dl (30-36); MCV 77.2 fl (81-99); MONOCYTES 7.1 % (0-12); NEUTROPHILS 72.1 % (39-80); PLATELET COUNT 270 K/uL (140-440); RBC 2.71 M/ul (4.3-5.7); RDW 17.5 (10.5-15.0)
[2024-01-07] MEDS ORDERED: HYDROmorphone HCL 1 MG/ML SYR IV ONE (08:45)
[2024-01-07] MEDS ORDERED: SODIUM CHLORIDE 0.9% 1,000 ML IV PRN (08:45)
[2024-01-07 08:48] LABS: ALBUMIN 3.3 g/dL (3.4-5.0); ALBUMIN/GLOBULIN RATIO 0.89 (1.1-2.4); ANION GAP 14.9 (7-21); BILIRUBIN, TOTAL 0.4 ng/dL (0.2-1.0); BUN/CREATININE RATIO 15.27 (6.0-28.6); CALCIUM 8.4 mg/dL (8.5-10.1); CREATININE, SERUM 0.72 mg/dL (0.55-1.02); POTASSIUM 3.9 mmol/L (3.5-5.1)
[2024-01-07 10:00] LABS: ABO O
[2024-01-07 10:01] LABS: ANTIBODY SCREEN NEGATIVE; RH POSITIVE
[2024-01-07] MEDS ORDERED: CEFTRIAXONE/SODIUM CHLORIDE 2 GM/100 ML PIGGYBACK IV ONE (10:15)
[2024-01-07] MEDS ORDERED: SODIUM CHLORIDE 0.9% 1,000 ML IV SCH (10:30)
[2024-01-07] MEDS ORDERED: HYDROmorphone HCL 1 MG/ML SYR IV PRN ×2 (10:30→19:00)
[2024-01-07] MEDS ORDERED: ondansetron HCL 4 MG/2 ML VIAL IV PRN ×2 (10:30→19:00)
[2024-01-07 11:03] VITALS: BP 132/58
[2024-01-07 13:23] VITALS: BP 114/38
[2024-01-07] MEDS ORDERED: OMEPRAZOLE40 MG PO (15:22)
[2024-01-07] MEDS ORDERED: MAG GLYCINATE100 MG PO (15:40)
[2024-01-07] MEDS ORDERED: B COMPLEX FORM0.4 MG PO (15:41)
[2024-01-07] MEDS ORDERED: VITAMIN C500 M1 PO (15:41)
[2024-01-07] MEDS ORDERED: POTASSIUM GLUCO99 MG PO (15:42)
[2024-01-07] MEDS ORDERED: ENOXAPARIN SODIUM 40 MG/0.4 ML SYR SUB-Q SCH (17:30)
[2024-01-07 18:43] VITALS: BP 126/72
[2024-01-07] MEDS ORDERED: LACTATED RINGER'S 1,000 ML IV SCH (19:00)
[2024-01-07 19:47] VITALS: BP 122/70
[2024-01-07 20:24] LABS: ABO O; RH POSITIVE
[2024-01-07 20:25] LABS: IS CROSSMATCH COMPATIBLE
[2024-01-07 20:40] VITALS: BP 90/51
[2024-01-07] MEDS ORDERED: ENOXAPARIN SODIUM 30 MG/0.3 ML SYR SUB-Q SCH (21:00)
[2024-01-07] MEDS ORDERED: FAMOTIDINE 20 MG/ 2 ML VIAL IV SCH (21:00)
[2024-01-07] MEDS ORDERED: CEFAZOLIN SODIUM 2 GM/20 ML SYR IV SCH (22:00)
[2024-01-07] MEDS ORDERED: ACETAMINOPHEN 500 MG TAB PO SCH (22:00)
[2024-01-08 05:27] VITALS: BP 152/72
[2024-01-08 05:35] LABS: BASOPHILS 0.7 % (0-2); EOSINOPHILS 2.9 % (0-6); HEMATOCRIT 25.3 % (35.0-50.0); HEMOGLOBIN 8.2 g/dL (12.0-18.0); LYMPHOCYTES 21.3 % (24-44); MCH 25.4 (27-36); MCHC 32.2 g/dl (30-36); MONOCYTES 9.4 % (0-12); NEUTROPHILS 65.7 % (39-80); PLATELET COUNT 207 K/uL (140-440); RBC 3.21 M/ul (4.3-5.7); RDW 18.2 (10.5-15.0)
[2024-01-08 05:46] LABS: ANION GAP 14.8 (7-21); BUN/CREATININE RATIO 14.28 (6.0-28.6); CALCIUM 7.8 mg/dL (8.5-10.1); CREATININE, SERUM 0.63 mg/dL (0.55-1.02); POTASSIUM 3.8 mmol/L (3.5-5.1)
[2024-01-08 08:12] VITALS: BP 117/62
[2024-01-08] MEDS ORDERED: PANTOPRAZOLE SODIUM 40 MG TABEC PO SCH (09:13)
[2024-01-08] MEDS ORDERED: ENOXAPARIN SODIUM 40 MG/0.4 ML SYR SUB-Q ONE (12:45)
[2024-01-08 14:00] VITALS: BP 135/67
[2024-01-08 14:29] VITALS: BP 135/67
[2024-01-08 18:01] VITALS: BP 137/76
[2024-01-08] MEDS ORDERED: ENOXAPARIN SODIUM 80 MG/0.8 ML SYR SUB-Q SCH (21:00)
[2024-01-08 21:04] VITALS: BP 157/71
[2024-01-09 02:50] VITALS: BP 164/83
[2024-01-09] MEDS ORDERED: FUROSEMIDE 20 MG/2 ML VIAL IV ONE (03:15)
[2024-01-09 04:09] VITALS: BP 138/69
[2024-01-09 06:55] LABS: BASOPHILS 0.9 % (0-2); EOSINOPHILS 2.6 % (0-6); HEMATOCRIT 25.7 % (35.0-50.0); HEMOGLOBIN 8.4 g/dL (12.0-18.0); LYMPHOCYTES 17.9 % (24-44); MCH 25.5 (27-36); MCHC 32.7 g/dl (30-36); MCV 77.9 fl (81-99); NEUTROPHILS 69.6 % (39-80); PLATELET COUNT 198 K/uL (140-440); RDW 18.7 (10.5-15.0)
[2024-01-09 07:14] LABS: ALBUMIN 3.3 g/dL (3.4-5.0); ALBUMIN/GLOBULIN RATIO 0.89 (1.1-2.4); ANION GAP 14.4 (7-21); BILIRUBIN, TOTAL 0.6 ng/dL (0.2-1.0); BUN/CREATININE RATIO 9.85 (6.0-28.6); CALCIUM 8.3 mg/dL (8.5-10.1); CREATININE, SERUM 0.71 mg/dL (0.55-1.02); POTASSIUM 3.4 mmol/L (3.5-5.1)
[2024-01-09] MEDS ORDERED: ACETAMINOPHEN500 MG PO (07:44)
[2024-01-09] MEDS ORDERED: METRONIDAZOLE500 MG PO (07:45)
[2024-01-09] MEDS ORDERED: CIPRO500 MG PO (07:45)
[2024-01-09 09:07] VITALS: BP 149/88
[2024-01-10 11:46] LABS: RBC, LEUKOREDUCED 18212402358700C
== END 2024-01-09 19:02 | disposition home or self-care (01) | DRG 392 ==
LOC: ED 07:59 → MS 10:20
PROVIDERS: Emergency Medicine; ADMIT Surgery; ATTEND Surgery
DX: K57.32 Diverticulitis of large intestine without perforation or abscess without bleeding (principal); D64.9 Anemia, unspecified; I48.91 Unspecified atrial fibrillation; Z86.73 Personal history of transient ischemic attack (TIA), and cerebral infarction without residual deficits; J45.909 Unspecified asthma, uncomplicated; N20.0 Calculus of kidney; G43.909 Migraine, unspecified, not intractable, without status migrainosus; Z90.710 Acquired absence of both cervix and uterus; Z98.890 Other specified postprocedural states; Z79.899 Other long term (current) drug therapy; Z79.891 Long term (current) use of opiate analgesic; Z88.8 Allergy status to other drugs, medicaments and biological substances
CPT/HCPCS: 36415; 71045; 74174; 80048; 80053; 81003; 83690; 84703; 85025; 85060; 85379; 86850; 86900; 86901; 86922; A9270; J0690; J0696; J1170; J1650; J1940; J2405; J7030; J7121; P9016; Q9967